=== PATIENT | male | born 1995 | race Caucasian/White ===

== ENCOUNTER 2019-02-08 19:00 | Emergency (ER) | payer OTHER, BC ==
[2019-02-08] MEDS ORDERED: ONDANSETRON 4 MG TAB.RAPDIS PO ONE (19:44)
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
[2019-02-08 21:21] VITALS: BP 122/75
== END 2019-02-08 21:25 | disposition home or self-care (01) ==
LOC: ER 19:00
DX: S06.0X9A Concussion with loss of consciousness of unspecified duration, initial encounter (principal); R11.2 Nausea with vomiting, unspecified; V87.7XXA Person injured in collision between other specified motor vehicles (traffic), initial encounter
CPT/HCPCS: 70450; 72125; 99283